=== PATIENT | male | born 1965 | race Caucasian/White ===

== ENCOUNTER 2024-06-07 06:39 | Day surgery (SDC) | payer BC, SELFPAY ==
[2024-05-21 13:03] VITALS: BMI 37.7
[2024-05-21 13:38] LABS: % Basophils 0.5 % (0-2); % Eosinophils 0.9 % (0-6); % Immature Granulocytes 0.4 % (0-0.5); % Lymphocytes 31.8 % (20.5-51.1); % Monocytes 8.2 % (1.7-9.3); % Neutrophils 58.2 % (42.2-75.2); Absolute Basophils 0.1 10^3/uL (0-0.2); Absolute Eosinophils 0.1 10^3/uL (0-0.7); Absolute Lymphocytes 3.3 10^3/uL (1.2-3.4); Absolute Monocytes 0.9 10^3/uL (0.1-0.6); Absolute Neutrophils 6.1 10^3/uL (1.4-6.5); Hematocrit 42.9 % (39.0-52.0); Hemoglobin 14.8 g/dL (13.0-18.0); Mean Corp Hgb Conc. 34.5 g/dL (33.0-37.0); Mean Corpuscular Hgb 34.1 pg (27.0-31.0); Mean Corpuscular Volume 98.8 fL (80.0-94.0); Mean Platelet Volume 10.6 fL (7.4-10.4); Nucleated Red Blood Cells % 0 % (-); Platelet Count 236 10^3/uL (130-400); Red Blood Cell Count 4.34 10^6/uL (4.70-6.10); Red Cell Dist. Width 12.3 % (11.5-14.5); White Blood Cell Count 10.5 10^3/uL (4.8-10.8)
[2024-05-21 13:43] LABS: INR 0.97; PT 13.2 Sec (11.4-14.6)
[2024-05-21 13:53] LABS: ALT (SGPT) 73 U/L (0-50); AST (SGOT) 36 U/L (17-59); Albumin 4.1 g/dl (3.5-5.0); Alkaline Phosphatase 70 U/L (38-126); Blood Urea Nitrogen 25 mg/dl (9-20); Calcium 9.7 mg/dl (8.4-10.2); Carbon Dioxide 29 mmol/L (22-30); Chloride 101 mmol/L (98-107); Estimated Creatinine Clearance > 125 ml/min; Glucose 92 mg/dl (70-99); Magnesium 2.1 mg/dl (1.6-2.3); Sodium 138 mmol/L (135-145); Total Bilirubin 0.7 mg/dl (0.2-1.3); Total Protein 6.8 g/dl (6.3-8.2); eGFR > 60.00
--- NOTE | 2024-05-22 16:44 | W.PN.UPDATE ---
Update Note
Progress Note Update
CT chest 05/21/24:
Partial nonopacification of the left atrial appendage likely related to incomplete contrast filling; however, cannot rule out thrombus. The left atrium is otherwise well opacified.
Tiny right upper lobe tree-in-bud nodules likely of infectious/inflammatory etiology. If the patient is considered high risk, an optional follow-up noncontrast CT chest can be obtained in 12 months. The [facility] Pulmonary Nodule Advisory
Board will be notified.
--patient's PCP retired--informed office and patient need for CT f/u given tobacco hx-faxed.
--- NOTE | 2024-06-04 10:33 | OID.L.PAT ---
Pulmonary Nodule Pat Letter
- -
06/04/24
AISHA SANDOVAL
[address]
[place], [place]
Ayala LEONARD,
A pulmonary nodule was seen on an imaging study done by [facility]. This was reviewed by the [facility] Pulmonary Nodule Advisory Board and the following recommendation was made:
Recommendation: Follow up CT Chest in 3 months
If you have any questions, please do not hesitate to contact your primary care physician. If you are in need of a Physician, you can go to [email or web address] and click on 'Find a Provider'. Type 'Family Medicine' in the search.
Oncology Nurse Navigator
[facility]
[phone]
--- NOTE | 2024-06-04 10:34 | OID.L.REC ---
Pulmonary Nodule Follow Up
- Recommendation
06/04/24
Pulmonary Nodule Review Recommendations
Your patient, AISHA SANDOVAL, had a pulmonary nodule seen on an imaging study done on 05/21/24 in the [facility]iology Department.
This was reviewed by the [facility] Pulmonary Nodule Advisory Board and the following recommendation was made:
Recommendation: Follow up CT Chest in 3 months
If you have any questions please do not hesitate to contact us.
Sincerely,
Oncology Nurse Navigator
[facility]
[phone]
[2024-06-07] VITALS (11 sets, daily range): BP systolic 112–131; BP diastolic 80–101
[2024-06-07 11:19] LABS: ACT-LR - POC 332 Seconds (116-155)
[2024-06-07 11:35] LABS: ACT-LR - POC 302 Seconds (116-155)
--- NOTE | 2024-06-07 11:52 | ITS.CL.ABL ---
Rn Clinical Research - Ablation
Ablation
Procedure Report:
ELECTROPHYSIOLOGY ABLATION STUDY
DATE:: June 07, 2024�����������������������������REFERRING: Dr. Sumeet Gusman
INDICATION: Persistent supraventricular tachycardia in the form of atrial fibrillation.��Tachycardia induced cardiomyopathy
HISTORY: See H and P.� As above. He is on Toprol XL 50 mg daily
ANTIARRHYTHMIC DRUG: Toprol
PRE-PROCEDURE CRICKET: No atrial thrombus. Ejection fraction 2024%
PRESENTING RHYTHM: A-fib
'TIME-OUT':��called and confirmed.
SEDATION/ANESTHESIA:��provided via the anesthesia department using general anesthesia (LMA).
INTRAVENOUS/ARTERIAL ACCESS:
Right femoral venous - 8Fr
Left femoral venous - 8 Fr, 6 Fr
Ultrasound guidance for bilateral femoral vein access was utilized by me to obtain access with demonstration of normal anatomy
CHADS-VASC Score:
HAS-Bled Score
PROCEDURE:
1.��A decapolar CS catheter was placed within the CS for mapping and pacing.��This was also used as the reference catheter for the 3-D map.
2. The intracardiac ultrasound catheter was positioned in the RA to identify the FO for targeting of transseptal puncture, assist��in identification of the pulmonary vein ostia, monitoring pre and post ablation pulmonary vein flow velocities,
monitoring for 'bubble' formation during RF application as a sign of thermal injury,��and to monitor for pericardial effusion during mapping and ablation procedure.���Left atrial size, LV ejection fraction, and pulmonary vein flows were monitored
pre and post ablation procedure. The other valves were inspected and found to be free of significant regurgitation or stenosis.
3.��Half of the calculated heparin bolus was administered prior to the first transeptal puncture.��Transseptal puncture was performed to diagnose RA and LA pressure so that safety of LA mapping and ablation could be further assessed, and to access
the left atrium and pulmonary veins for mapping and ablation.��This entailed advancing an 16.8 [place] RF wire, sheath with dilator into the superior vena cava and withdrawing both (monitoring intracardiac ultrasound, fluoroscopy and tip pressure)
with the tip oriented toward the atrial septum.��The fossa ovalis was engaged (indicated by sudden displacement of the sheath tip as well as tenting of the fossa seen on intracardiac ultrasound).��Left atrial access required a pass with the
[place] needle extended.��Left atrial catheter position was confirmed by pressure monitoring (RA mean pressure 8 mm Hg and LA mean pressure 14 mm Hg), LA saturation (99%),��as well as fluoroscopy.��The sheath was advanced over the dilator and
positioned in the left atrium.���The remainder of the calculated heparin bolus was administered and heparin was
infused to maintain ACT at 300 -350 seconds throughout the case.
4.��RA pacing was performed via the proximal decapolar poles and LA pacing was performed via the distal decapolr poles.
5. A quadrapolar catheter was first positioned at the His position for His Bundle recording which was tagged via the 3-D Navex sytem, and then passed to the RVA for RV pacing and recording.
6. The multipolar catheter and the PFA catheter placed in each of the LIPV, LSPV, RSPV and the RIPV.��
7.��Next, a 3-D map was created using Navex.���A 3-D reconstructed CT image was compared to the 3-D Navex map to assist in anatomic interpretation, mapping and ablation.��The CT image and the NavX image were fused.
8. A total of 53 lesions were given to the pulmonary veins and left atrial posterior wall. [place] and basket poses to each of the 4 pulmonary veins and flower pose to the roof posterior wall and left atrial floor including the interatrial septum.
Once entrance block was confirmed in all 4 pulmonary veins and the posterior wall the patient was cardioverted to sinus rhythm 112 100 J synchronized biphasic shock restoring sinus rhythm. Ejection fraction improved from 15 to 20% to 30% after
cardioversion. We then confirmed exit block in all 4 pulmonary veins as well as the roof posterior wall and floor of the left atrium. Patient was noninducible for other tachyarrhythmia.
9. EP study post cardioversion demonstrated normal sinus node and AV everton function. Patient was noninducible for other tachyarrhythmias.
TOTAL FLOURO TIME: 11.6 minutes 112 mGy
TOTAL RF DURATION: 0 minutes
REVERSAL OF HEPARIN: 35 mg of protamine, slow IV administration
COMPLICATIONS:
None
Intracardiac US shows no pericardial effusion post ablation.
SUMMARY:��
Complex left atrial mapping and ablation.
Isolation of all 4 pulmonary veins, left atrial posterior wall roof and floor of the left atrium.
RECOMMENDATIONS:
1. Out of bed in 4 hours
2. Resume anticoagulation
3.��Consider same-day discharge
4.� Adding low-dose lisinopril with a BMP in 1 week in addition to the Toprol XL given the patient's cardiomyopathy. I will ask his referring social services counselor to perform echocardiogram in 3 months.
Copy to: Dr. Sumeet Gusman
[2024-06-07] MEDS: ANESTHETIC LOZENGE 1 LOZENGE PO (13:06)
--- NOTE | 2024-06-07 15:45 | W.PN.UPDATE ---
Update Note
Progress Note Update
58 yo WM s/p PVI (Same day). He denies cp, sob, shereen diet, b/l groins c/d/i, EKG SR. He will resume Xarelto tonight after 6pm. His EF ~30%, will add GDMT with lisinopril and continue metoprolol succinate. He will need reassessment of EF by Echo in 40
days to see if EF improved in SR. We will check BMP/Mg in 1 week to assess Cr/K. He states lately he has had leg cramps and has been taking potassium and magnesium which I instructed he stop until after BMP checked on Lisinopril. If not he will need
more GDMT added as outpt. Activity restrictions reviewed. He will f/u Dr. Gusman in 2mo. He is for d/c home after 430p if groin stable and voiding.
== END 2024-06-07 17:00 | disposition home or self-care (01) ==
LOC: CATH 06:39
PROVIDERS: ATTENDING PHYSICIAN Internal Medicine Cardiovascular Disease
DX: I48.0 Paroxysmal atrial fibrillation (principal); R06.02 Shortness of breath; M19.90 Unspecified osteoarthritis, unspecified site; E66.9 Obesity, unspecified; Z68.37 Body mass index [BMI] 37.0-37.9, adult; Z72.0 Tobacco use; K21.9 Gastro-esophageal reflux disease without esophagitis; Z79.899 Other long term (current) drug therapy; Z79.01 Long term (current) use of anticoagulants
CPT/HCPCS: C1894; C1732; C1730; C1759; C1892; 75572; 80053; 83735; 85025; 85347; 85610; 86850; 86900; 86901; 93005; 93312; 93320; 93325; 93656; 93657; C1733; C1766; Q9967

== ENCOUNTER → 2025-03-08 09:16 | Outpatient (REF) | payer BC, SELFPAY | LOC: RCS 09:16 | PROVIDERS: ATTENDING PHYSICIAN Internal Medicine Cardiovascular Disease | DX: I48.0 Paroxysmal atrial fibrillation (principal); I36.1 Nonrheumatic tricuspid (valve) insufficiency; I42.8 Other cardiomyopathies | CPT/HCPCS: 93306 ==